=== PATIENT | male | born 1985 | race African-American/Black ===

== ENCOUNTER 2019-10-09 18:19 | Inpatient (IN) | payer OTHER ==
[~2019-10-09] VITALS: Ht 185.4 cm; Wt 76.7 kg
[2019-10-09 18:30] VITALS: BP 116/68
[2019-10-09] MEDS ORDERED: Omnipaque-300 100ml vial INJ ONE (18:45)
[2019-10-09] MEDS ORDERED: Morphine Sulfate 4mg/ml Inj (IV USE ONLY) IVP ONE (18:45)
--- NOTE | 2019-10-09 18:45 | Emergency Room Report ---
History of Present Illness General Chief Complaint: Neck Pain Source: Patient Present Illness HPI Patient presents from nursing facility with reports of discomfort to the right side of the tracheostomy area radiates up towards the right side of the jaw and ear Ongoing for the past several days denies any chest pain denies any vomiting denies any fevers or chills Denies any focal weakness patient has had longstanding tracheostomy in place Allergies: Coded Allergies: IBUPROFEN (Verified Allergy, Unknown, 10/09/19) COVID-19 Screening Contact w/high risk pt: No Recent Travel to affected area: No Experienced COVID-19 symptoms?: No COVID-19 Testing performed INTERNAL COMMUNICATIONS INTERN: Yes COVID-19 Screening: Negative COVID-19 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 Patient History Past Medical History: see triage record Reviewed Nursing Documentation: PMH: Agreed; PSxH: Agreed Nursing Documentation-PMH Hx Asthma: Yes Hx COPD: Yes - pneumonia, septic PE Review of Systems All Other Systems: negative except mentioned in HPI Physical Exam Vital Signs Date Time Temp Pulse Resp B/P (MAP) Pulse Ox O2 Delivery O2 Flow Rate FiO2 10/09/19 18:21 98.2 112 20 116/68 (84) 96 Room Air Sp02 EP Interpretation: reviewed, normal General Appearance: well appearing, no apparent distress Head: normocephalic, atraumatic Eyes: bilateral eye PERRL, bilateral eye EOMI ENT: hearing grossly normal, normal pharynx, TMs + canals normal, uvula midline , other - Tracheostomy in place there is some mild erythema noted at the site there is also a small pustule to the right side approximately 9:00 region at the tracheostomy region Neck: full range of motion, supple, no meningismus, no bony tend Respiratory: lungs clear, normal breath sounds, no rhonchi, no respiratory distress, no retraction, no accessory muscle use Cardiovascular #1: normal peripheral pulses, regular rate, rhythm, no edema, no gallop, no JVD, no murmur Gastrointestinal: normal bowel sounds, non tender, soft, no mass, no organomegaly, non-distended, no guarding, no hernia, no pulsatile mass, no rebound Musculoskeletal: other - Patient chronically debilitated does not follow commands and lower extremity however moves upper extremity without focal deficit Neurologic: motor strength/tone normal, oriented x3, sensory intact, responsive Psychiatric: mood/affect normal Skin: other - As above Lymphatic: normal inspection, no adenopathy Medical Decision Making Diagnostic Impression: Primary Impression: Cellulitis ER Course Given the history and presentation multiple differentials and consideration including but not limited to cellulitis Deeper infectious process such as abscess Patient had extensive blood work and imaging initiated CT imaging does not show any obvious abscess Patient has broad-spectrum antibiotics initiated and admitted for further care Labs Test 10/09/19 19:00 White Blood Count 10.2 K/UL (4.8-10.8) Red Blood Count 4.73 M/UL (4.70-6.10) Hemoglobin 11.3 G/DL (14.2-18.0) Hematocrit 37.5 % (42.0-52.0) Mean Corpuscular Volume 79 FL (80-99) Mean Corpuscular Hemoglobin 23.8 PG (27.0-31.0) Mean Corpuscular Hemoglobin Concent 30.0 G/DL (32.0-36.0) Red Cell Distribution Width 20.3 % (11.6-14.8) Platelet Count 320 K/UL (150-450) Mean Platelet Volume 6.6 FL (6.5-10.1) Neutrophils (%) (Auto) 61.8 % (45.0-75.0) Lymphocytes (%) (Auto) 30.6 % (20.0-45.0) Monocytes (%) (Auto) 3.4 % (1.0-10.0) Eosinophils (%) (Auto) 3.4 % (0.0-3.0) Basophils (%) (Auto) 0.8 % (0.0-2.0) Sodium Level 137 MMOL/L (136-145) Potassium Level 3.9 MMOL/L (3.5-5.1) Chloride Level 101 MMOL/L (98-107) Carbon Dioxide Level 29 MMOL/L (21-32) Anion Gap 7 mmol/L (5-15) Blood Urea Nitrogen 10 mg/dL (7-18) Creatinine 0.8 MG/DL (0.55-1.30) Estimat Glomerular Filtration Rate > 60 mL/min (>60) Glucose Level 91 MG/DL (74-106) Calcium Level 9.6 MG/DL (8.5-10.1) Total Bilirubin 0.1 MG/DL (0.2-1.0) Aspartate Amino Transf (AST/SGOT) 16 U/L (15-37) Alanine Aminotransferase (ALT/SGPT) 24 U/L (12-78) Alkaline Phosphatase 93 U/L (46-116) Total Protein 8.0 G/DL (6.4-8.2) Albumin 2.8 G/DL (3.4-5.0) Globulin 5.2 g/dL Albumin/Globulin Ratio 0.5 (1.0-2.7) Rhythm Strip Diag. Results EP Interpretation: yes Rate: 77 Rhythm: NSR, no PVC's, no ectopy CT/MRI/US Diagnostic Results CT/MRI/US Diagnostic Results : Impression CT neckIMPRESSION: No acute findings in the neck. Centrilobular nodules in the right lung base consistent with aspiration. There is also aspirate material in the lower trachea and right main bronchus. Last Vital Signs Date Time Temp Pulse Resp B/P (MAP) Pulse Ox O2 Delivery O2 Flow Rate FiO2 10/09/19 18:21 98.2 112 20 116/68 (84) 96 Room Air Status: improved Disposition: ADMITTED INPATIENT Condition: Serious Jessi Foy DO Oct 09, 2019 18:45
[2019-10-09 19:26] LABS: BASOPHILS % (AUTO) 0.8 % (0.0-2.0); EOSINOPHILS % (AUTO) 3.4 % (0.0-3.0); HEMATOCRIT 37.5 % (42.0-52.0); HEMOGLOBIN 11.3 G/DL (14.2-18.0); LYMPHOCYTES % (AUTO) 30.6 % (20.0-45.0); MEAN CORPUSCULAR VOLUME 79 FL (80-99); MONOCYTES % (AUTO) 3.4 % (1.0-10.0); NEUTROPHILS % (AUTO) 61.8 % (45.0-75.0); PLATELET COUNT 320 K/UL (150-450); RED BLOOD COUNT 4.73 M/UL (4.70-6.10); RED CELL DISTRIBUTION WIDTH 20.3 % (11.6-14.8); WHITE BLOOD COUNT 10.2 K/UL (4.8-10.8)
[2019-10-09 19:32] LABS: ANION GAP 7 mmol/L (5-15); BLOOD UREA NITROGEN 10 mg/dL (7-18); CALCIUM 9.6 MG/DL (8.5-10.1); CARBON DIOXIDE 29 MMOL/L (21-32); CHLORIDE 101 MMOL/L (98-107); CREATININE 0.8 MG/DL (0.55-1.30); POTASSIUM 3.9 MMOL/L (3.5-5.1); SODIUM 137 MMOL/L (136-145)
[2019-10-09 19:37] LABS: ALANINE AMINOTRANSFERASE 24 U/L (12-78); ALBUMIN 2.8 G/DL (3.4-5.0); ALBUMIN/GLOBULIN RATIO 0.5 (1.0-2.7); ALKALINE PHOSPHATASE 93 U/L (46-116); ASPARTATE AMINO TRANSFERASE 16 U/L (15-37)
[2019-10-09] MEDS ORDERED: ASCORBIC ACID500 MG GT (19:39)
[2019-10-09] MEDS ORDERED: ABACAVIR300 MG GT (19:39)
[2019-10-09] MEDS ORDERED: ACETAMINOP160 MG/5 M GT (19:39)
[2019-10-09] MEDS ORDERED: ACETAMINOPHEN325 M1 GT (19:39)
[2019-10-09] MEDS ORDERED: ARGINAID POWDE1 EACH GT (19:39)
[2019-10-09] MEDS ORDERED: TRAMADOL HCL100 M2 GT (19:40)
[2019-10-09] MEDS ORDERED: PERIDEX15 ML ORAL (19:40)
[2019-10-09] MEDS ORDERED: FAMOTIDINE20 MG/2 ML GT (19:40)
[2019-10-09] MEDS ORDERED: santyl TOPIC (19:40)
[2019-10-09] MEDS ORDERED: LOVENOX40 MG/0.4 SUBQ (19:40)
[2019-10-09] MEDS ORDERED: LAMIVUDINE GT (19:40)
[2019-10-09] MEDS ORDERED: HYDROGEL3000 GM MC (19:40)
[2019-10-09] MEDS ORDERED: MULTI-VITAMIN1 EACH GT (19:40)
[2019-10-09] MEDS ORDERED: CYCLOBENZAPRINE5 MG GT (19:40)
[2019-10-09] MEDS ORDERED: METOCLOPRA10 MG/2 ML GT (19:40)
[2019-10-09] MEDS ORDERED: BETADINE1 EAC1 TP (19:40)
[2019-10-09] MEDS ORDERED: POLYETHYLENE GL17 GM GT (19:40)
[2019-10-09] MEDS ORDERED: TIVICAY50 MG GT (19:40)
[2019-10-09] MEDS ORDERED: ZINC SULFATE220 M2 GT (19:40)
[2019-10-09] MEDS ORDERED: OXYCODONE H5 MG/5 ML GT (19:40)
[2019-10-09] MEDS ORDERED: BISACODYL5 MG GT (19:40)
[2019-10-09 19:49] LABS: BILIRUBIN,TOTAL 0.1 MG/DL (0.2-1.0)
--- NOTE | 2019-10-09 20:38 | Diagnostic Imaging Report ---
EXAM: CT Neck With Intravenous Contrast CLINICAL HISTORY: PAIN TECHNIQUE: Axial computed tomography images of the neck with intravenous contrast. CTDI is 192 mGy and DLP is 344 mGy-cm. One or more of the following dose reduction techniques were used: automated exposure control, adjustment of the mA and/or kV according to patient size, use of iterative reconstruction technique. COMPARISON: No relevant prior studies available. FINDINGS: Oropharynx: No significant tonsillar enlargement. No peritonsillar abscess. Hypopharynx: Unremarkable. Larynx: Normal epiglottis. Trachea: Unremarkable. Retropharyngeal space: Unremarkable. Submandibular/parotid glands: Glands are normal in size. Thyroid: No nodules. Bones/joints: No acute fracture. Soft tissues: Tracheostomy tube is in place. Vasculature: Unremarkable. Lymph nodes: No lymphadenopathy. Mastoid air cells: Unremarkable. No mastoid effusion. Lung apices: Centrilobular nodules in the right lung base. There is also aspirate material in the lower trachea and right main bronchus. IMPRESSION: No acute findings in the neck. Centrilobular nodules in the right lung base consistent with aspiration. There is also aspirate material in the lower trachea and right main bronchus.
[2019-10-09 21:45] VITALS: BP 113/71
[2019-10-10] VITALS: BP 117/79
[2019-10-10] MEDS: oxyCODONE 15mg IR tab ORAL PRN ×5 (01:02→22:28)
[2019-10-10 04:00] VITALS: BP 120/62
[2019-10-10] MEDS ORDERED: Miralax 17gm pkt GT PRN (06:30)
[2019-10-10 06:48] LABS: BASOPHILS % (AUTO) 0.8 % (0.0-2.0); EOSINOPHILS % (AUTO) 2.3 % (0.0-3.0); HEMATOCRIT 32.8 % (42.0-52.0); MEAN CORPUSCULAR VOLUME 79 FL (80-99); MONOCYTES % (AUTO) 6.3 % (1.0-10.0); NEUTROPHILS % (AUTO) 68.6 % (45.0-75.0); PLATELET COUNT 347 K/UL (150-450); RED BLOOD COUNT 4.14 M/UL (4.70-6.10); RED CELL DISTRIBUTION WIDTH 20.3 % (11.6-14.8); WHITE BLOOD COUNT 11.3 K/UL (4.8-10.8)
[2019-10-10 07:15] LABS: ALANINE AMINOTRANSFERASE 17 U/L (12-78); ALBUMIN 2.5 G/DL (3.4-5.0); ALBUMIN/GLOBULIN RATIO 0.5 (1.0-2.7); ALKALINE PHOSPHATASE 76 U/L (46-116); ANION GAP 8 mmol/L (5-15); ASPARTATE AMINO TRANSFERASE 15 U/L (15-37); BILIRUBIN,TOTAL 0.1 MG/DL (0.2-1.0); BLOOD UREA NITROGEN 10 mg/dL (7-18); CALCIUM 7.9 MG/DL (8.5-10.1); CARBON DIOXIDE 27 MMOL/L (21-32); CHLORIDE 101 MMOL/L (98-107); CREATININE 0.8 MG/DL (0.55-1.30); POTASSIUM 4.1 MMOL/L (3.5-5.1); SODIUM 136 MMOL/L (136-145)
[2019-10-10 08:00] VITALS: BP 102/63
[2019-10-10] MEDS: Heparin 5000 units/ml inj SUBQ SCH ×2 (09:00→21:00)
[2019-10-10] MEDS ORDERED: Bisacodyl EC 5mg tab ORAL PRN (09:00)
[2019-10-10] MEDS: Ascorbic Acid 500mg tab GT SCH (09:03)
[2019-10-10] MEDS: Zinc Sulfate 220mg GT SCH (09:04)
[2019-10-10] MEDS: Cyclobenzaprine 10mg Tab ORAL SCH ×3 (10:29→18:26)
[2019-10-10 11:36] VITALS: BP 110/65
--- NOTE | 2019-10-10 12:02 | Consultation ---
EdinCrystal EYELETTER 10/10/19 1202: History of Present Illness General Date patient seen: Oct 10, 2019 Time patient seen: 11:00 Chief Complaint: trach Referring physician: dr Flores Reason for Consultation: trach Present Illness HPI 33 years old male, resident of assisted facility, with past medical history of COPD/asthma, septic emboli, respiratory failure, status post tracheostomy, dysphagia, G-tube, HIV, was sent to ER for evaluation due to the right sided neck discomfort. Patient reported right-sided neck discomfort at the tracheostomy area , radiating over his right side of the jaw and ear. He denied fever , chills. He denied chest pain or shortness of breath. Tracheostomy currently plugged , and pulse oximetry stable on room air . Upon evaluation patient was afebrile and tachycardic with heart rate 112. Laboratory work-up revealed WBC 10.2 ,hemoglobin 11.3, hematocrit 37.5, platelet count 320. Stable electrolytes and renal parameters. Glucose 91. Stable LFT. Albumin 2.8. EKG revealed no acute ischemic changes. CT of the neck revealed no acute findings in the neck. Centrilobular nodule in the right lung base consistent with aspiration. There is also aspiration material in the lower trachea and right main bronchi. In emergency department patient received analgesic antiemetic and admitted for further management. Pulmonary consult was requested to assist in management of this patient. When questioned, patient reports that he wants trach to be removed. Trach is currently plugged. Patient has diffused rhonchi on auscultation. Patient reported that bedside swallow evaluation was done at the facility , however he still aspirated. When questioned regarding septic emboli , patient not sure if he is getting any anticoagulation and when he was diagnosed. When questioned regarding last CD4 count patient is not aware of it as well. This am patient developed fever 100.8 and mild leukocytosis 11.3. Allergies: Coded Allergies: IBUPROFEN (Verified Allergy, Unknown, 10/09/19) Medication History Scheduled Abacavir Sulfate* (Abacavir*), 300 MG ORAL DAILY, (Reported) Ascorbic Acid* (Ascorbic Acid*), 500 MG GT DAILY, (Reported) Bisacodyl* (Dulcolax*), 5 MG GT DAILY, (Reported) Chlorhexidine Gluconate (Peridex), 15 ML ORAL BID, (Reported) Cyclobenzaprine Hcl (Cyclobenzaprine Hcl), 10 MG GT THREE TIMES A DAY, (Reported ) Dolutegravir Sodium (Tivicay), 50 MG GT DAILY, (Reported) FAMOTIDINE 20mg/2ml vial* (Pepcid 20mg/2ml vial*), 20 MG GT BID, (Reported) Metoclopramide HCl (Metoclopramide HCl), 10 MG GT Q8HR, (Reported) Oxycodone Hcl (Oxycodone Hcl), 15 MG GT Q4HR, (Reported) Tramadol Hcl (Tramadol Hcl), 50 MG GT Q4HR, (Reported) Zinc Sulfate (Zinc Sulfate), 220 MG GT DAILY, (Reported) [iamivudine], 300 MG GT DAILY, (Reported) [santyl], 250 UNIT TOPIC DAILY, (Reported) Scheduled PRN Acetaminophen 160MG/5ML* (Acetaminophen*), 20.3 ML GT Q6HR PRN for Fever/ Headache/Mild Pain, (Reported) Acetaminophen* (Acetaminophen 325MG Tablet*), 325 MG GT DAILY PRN for prior to wound care, (Reported) Polyethylene Glycol 3350* (Polyethylene Glycol 3350*), 15 ML GT DAILY PRN for Constipation, (Reported) Miscellaneous Medications Arginine/Ascorbate Sod/Brandon AC (Arginaid Powder), 1 EACH GT, (Reported) Enoxaparin (Lovenox), 40 MG SUBQ, (Reported) Gel Base No.41 (Hydrogel), 3,000 GM MC, (Reported) Multivitamin (Multi-Vitamin Daily), 1 EACH GT, (Reported) Povidone-Iodine (Betadine), 1 EACH TP, (Reported) Discontinued Medications Abacavir Sulfate* (Abacavir*), 300 MG GT TWICE A DAY, (Reported) Discontinued Reason: Medication dose changed Patient History Healthcare decision maker Resuscitation status Full code Advanced Directive on File Review of Systems Constitutional: Reports: no symptoms Eye: Reports: no symptoms ENT: Reports: no symptoms Respiratory: Reports: see HPI, other - trach Cardiovascular: Reports: no symptoms Gastrointestinal: Reports: other - G tube Genitourinary: Reports: no symptoms Musculoskeletal: Reports: back pain Skin: Reports: other - denisse foot ulcers Psychiatric: Reports: anxiety Neurological: Reports: no symptoms Endocrine: Reports: no symptoms Hematologic/Lymphatic: Reports: other - HIV Physical Exam General Appearance: WD/WN, no apparent distress - AA male Lines, tubes and drains: peripheral HEENT: normocephalic, atraumatic, anicteric, mucous membranes moist, status post trach - plugged , minimal erythema, no edema around the site, hypergranulation tissue noted Respiratory/Chest: no accessory muscle use, respiratory distress, rhonchi - bilaterally Cardiovascular/Chest: normal peripheral pulses, normal rate Abdomen: normal bowel sounds, non tender, soft Extremities: no calf tenderness, normal capillary refill, non-pitting Skin Exam: warm/dry, other - denisse foot ulcers Neurologic: abnormal gait, alert, oriented x 3, responsive, other - multiple tattoos Musculoskeletal: normal muscle bulk Last 24 Hour Vital Signs Date Time Temp Pulse Resp B/P (MAP) Pulse Ox O2 Delivery O2 Flow Rate FiO2 10/10/19 11:36 98.2 110 20 110/65 (80) 92 10/10/19 09:00 Room Air 10/10/19 08:00 97.7 114 24 102/63 (76) 92 10/10/19 05:31 100.8 10/10/19 04:00 100.8 132 24 120/62 (81) 90 10/10/19 03:00 Room Air 10/10/19 00:00 98.2 129 22 117/79 (92) 96 10/09/19 23:35 98.2 82 22 115/76 98 Room Air 10/09/19 21:45 98.2 85 20 113/71 98 Room Air 10/09/19 19:17 98.2 10/09/19 18:30 98.2 20 116/68 96 Room Air 10/09/19 18:21 98.2 112 20 116/68 (84) 96 Room Air Intake and Output 10/09/19 10/10/19 19:00 07:00 Intake Total 500 ml Output Total 700 ml Balance -200 ml Other 500 ml Output Urine Total 700 ml # Bowel Movements 1 Laboratory Tests Test 10/09/19 19:00 10/10/19 06:00 White Blood Count 10.2 K/UL (4.8-10.8) 11.3 K/UL (4.8-10.8) H Red Blood Count 4.73 M/UL (4.70-6.10) 4.14 M/UL (4.70-6.10) L Hemoglobin 11.3 G/DL (14.2-18.0) L 10.0 G/DL (14.2-18.0) L Hematocrit 37.5 % (42.0-52.0) L 32.8 % (42.0-52.0) L Mean Corpuscular Volume 79 FL (80-99) L 79 FL (80-99) L Mean Corpuscular Hemoglobin 23.8 PG (27.0-31.0) L 24.2 PG (27.0-31.0) L Mean Corpuscular Hemoglobin Concent 30.0 G/DL (32.0-36.0) L 30.6 G/DL (32.0-36.0) L Red Cell Distribution Width 20.3 % (11.6-14.8) H 20.3 % (11.6-14.8) H Platelet Count 320 K/UL (150-450) 347 K/UL (150-450) Mean Platelet Volume 6.6 FL (6.5-10.1) 6.6 FL (6.5-10.1) Neutrophils (%) (Auto) 61.8 % (45.0-75.0) 68.6 % (45.0-75.0) Lymphocytes (%) (Auto) 30.6 % (20.0-45.0) 22.0 % (20.0-45.0) Monocytes (%) (Auto) 3.4 % (1.0-10.0) 6.3 % (1.0-10.0) Eosinophils (%) (Auto) 3.4 % (0.0-3.0) H 2.3 % (0.0-3.0) Basophils (%) (Auto) 0.8 % (0.0-2.0) 0.8 % (0.0-2.0) Sodium Level 137 MMOL/L (136-145) 136 MMOL/L (136-145) Potassium Level 3.9 MMOL/L (3.5-5.1) 4.1 MMOL/L (3.5-5.1) Chloride Level 101 MMOL/L (98-107) 101 MMOL/L (98-107) Carbon Dioxide Level 29 MMOL/L (21-32) 27 MMOL/L (21-32) Anion Gap 7 mmol/L (5-15) 8 mmol/L (5-15) Blood Urea Nitrogen 10 mg/dL (7-18) 10 mg/dL (7-18) Creatinine 0.8 MG/DL (0.55-1.30) 0.8 MG/DL (0.55-1.30) Estimat Glomerular Filtration Rate > 60 mL/min (>60) > 60 mL/min (>60) Glucose Level 91 MG/DL (74-106) 110 MG/DL (74-106) H Calcium Level 9.6 MG/DL (8.5-10.1) 7.9 MG/DL (8.5-10.1) L Total Bilirubin 0.1 MG/DL (0.2-1.0) L 0.1 MG/DL (0.2-1.0) L Aspartate Amino Transf (AST/SGOT) 16 U/L (15-37) 15 U/L (15-37) Alanine Aminotransferase (ALT/SGPT) 24 U/L (12-78) 17 U/L (12-78) Alkaline Phosphatase 93 U/L (46-116) 76 U/L (46-116) Total Protein 8.0 G/DL (6.4-8.2) 7.1 G/DL (6.4-8.2) Albumin 2.8 G/DL (3.4-5.0) L 2.5 G/DL (3.4-5.0) L Globulin 5.2 g/dL 4.6 g/dL Albumin/Globulin Ratio 0.5 (1.0-2.7) L 0.5 (1.0-2.7) L Height (Feet): 6 Height (Inches): 1.00 Weight (Pounds): 165 Medications Current Medications Medications (Trade) Dose Ordered Sig/Fritz Route PRN Reason Start Time Stop Time Status Last Admin Dose Admin Abacavir Sulfate (Ziagen) 300 mg DAILY GT 10/10/19 09:00 11/09/19 08:59 UNV Acetaminophen (Tylenol) 650 mg Q4H PRN ORAL Mild Pain (Pain Scale 1-3) 10/10/19 04:45 11/09/19 04:44 10/10/19 05:01 Ascorbic Acid (Vitamin C) 500 mg DAILY GT 10/10/19 09:00 11/09/19 08:59 10/10/19 09:03 Bisacodyl (Dulcolax) 10 mg DAILY PRN ORAL Constipation 10/10/19 09:00 01/08/20 08:59 Cyclobenzaprine HCl (Flexeril) 10 mg THREE TIMES A DAY ORAL 10/10/19 09:00 11/09/19 08:59 10/10/19 10:29 Dolutegravir Sodium (Tivicay) 50 mg DAILY GT 10/10/19 09:00 01/08/20 08:59 UNV Famotidine (Pepcid) 20 mg BID ORAL 10/10/19 09:00 01/08/20 08:59 10/10/19 09:03 Heparin Sodium (Porcine) (Heparin 5000 units/ml) 5,000 units EVERY 12 HOURS SUBQ 10/10/19 09:00 11/24/19 08:59 Multivitamins (Multivitamins) 1 tab DAILY GT 10/10/19 09:00 11/09/19 08:59 10/10/19 09:04 Non-Formulary Medication (Non-Formulary Med) 1 ea DAILY ORAL 10/10/19 09:00 11/09/19 08:59 UNV Ondansetron HCl (Zofran) 4 mg EVERY 6 HOURS PRN IVP Nausea & Vomiting 10/10/19 00:45 11/09/19 00:44 Oxycodone HCl (Roxicodone) 15 mg Q4H PRN ORAL Severe Pain (Pain Scale 7-10) 10/10/19 00:45 10/17/19 00:44 10/10/19 09:03 Polyethylene Glycol (Miralax) 1 gm DAILY PRN GT Constipation 10/10/19 06:30 11/09/19 06:29 Zinc Sulfate (Zinc Sulfate) 220 mg DAILY GT 10/10/19 09:00 01/08/20 08:59 10/10/19 09:04 Assessment/Plan Assessment/Plan: ASSESSMENT Neck/trach discomfort Trach cellulitis Aspiration ( with fever and leukocytosis) Chronic tracheostomy Dysphagia, G tube HIV status COPD /asthma Hx of septic emboli PLAN OF CARE MS floor trach care , pulm toilet , HHN titrate O2 to keep sat above 90%, stable on RA no significant cellulitis noted start empiric abx for aspiration, fup with CXR and clinically pt wants to remove trach , defer to primary trach plugged at this time, pulse ox stable on RA, however at this time significant rhonchi bilaterally BSSE, pt stated it was done at the facility, however, he still aspirated, will repeat swallow eval after swallow eval diet as per ST recs aspiration precautions DVT/GI prophylaxis SNF meds resumed incomplete data base ( pt does not provide info as to how he got trach, CD4 count etc) Continue HAART as from SNF -> if available at our pharmacy no info re septic emboli;i, ? on a/coagulation will try to obtain more info pain management bowel regimen supportive care case discussed and evaluated by supervising physician Benton Willson MD 10/11/19 1115: History of Present Illness General Chief Complaint: trach Present Illness Allergies: Coded Allergies: IBUPROFEN (Verified Allergy, Unknown, 10/09/19) Medication History Scheduled Abacavir Sulfate* (Abacavir*), 300 MG ORAL DAILY, (Reported) Ascorbic Acid* (Ascorbic Acid*), 500 MG GT DAILY, (Reported) Bisacodyl* (Dulcolax*), 5 MG GT DAILY, (Reported) Chlorhexidine Gluconate (Peridex), 15 ML ORAL BID, (Reported) Cyclobenzaprine Hcl (Cyclobenzaprine Hcl), 10 MG GT THREE TIMES A DAY, (Reported ) Dolutegravir Sodium (Tivicay), 50 MG GT DAILY, (Reported) FAMOTIDINE 20mg/2ml vial* (Pepcid 20mg/2ml vial*), 20 MG GT BID, (Reported) Metoclopramide HCl (Metoclopramide HCl), 10 MG GT Q8HR, (Reported) Oxycodone Hcl (Oxycodone Hcl), 15 MG GT Q4HR, (Reported) Tramadol Hcl (Tramadol Hcl), 50 MG GT Q4HR, (Reported) Zinc Sulfate (Zinc Sulfate), 220 MG GT DAILY, (Reported) [iamivudine], 300 MG GT DAILY, (Reported) [santyl], 250 UNIT TOPIC DAILY, (Reported) Scheduled PRN Acetaminophen 160MG/5ML* (Acetaminophen*), 20.3 ML GT Q6HR PRN for Fever/ Headache/Mild Pain, (Reported) Acetaminophen* (Acetaminophen 325MG Tablet*), 325 MG GT DAILY PRN for prior to wound care, (Reported) Polyethylene Glycol 3350* (Polyethylene Glycol 3350*), 15 ML GT DAILY PRN for Constipation, (Reported) Miscellaneous Medications Arginine/Ascorbate Sod/Brandon AC (Arginaid Powder), 1 EACH GT, (Reported) Enoxaparin (Lovenox), 40 MG SUBQ, (Reported) Gel Base No.41 (Hydrogel), 3,000 GM MC, (Reported) Multivitamin (Multi-Vitamin Daily), 1 EACH GT, (Reported) Povidone-Iodine (Betadine), 1 EACH TP, (Reported) Discontinued Medications Abacavir Sulfate* (Abacavir*), 300 MG GT TWICE A DAY, (Reported) Discontinued Reason: Medication dose changed Assessment/Plan Assessment/Plan: Patient seen and examined with EYELETTER. I agree with above A&P as this reflects our joint deliberations. Crystal Jesus NP Oct 10, 2019 12:02 Bneton Willson MD Oct 11, 2019 11:15
[2019-10-10] MEDS ORDERED: Albuterol/Ipratropium 3ml neb HHN PRN (12:10)
[2019-10-10 14:20] LABS: APPEARANCE,URINE SLIGHTLY CLOUDY; BILIRUBIN, URINE NEGATIVE (NEGATIVE); COLOR,URINE PALE YELLOW; GLUCOSE, URINE (UA) NEGATIVE (NEGATIVE); KETONES,URINE NEGATIVE (NEGATIVE); LEUKOCYTE ESTERASE ,URINE 3+ (NEGATIVE); NITRITE,URINE POSITIVE (NEGATIVE); PH,URINE 7 (4.5-8.0); PROTEIN,URINE 1+ (NEGATIVE); UROBILINOGEN,URINE NORMAL MG/DL (0.0-1.0)
[2019-10-10] MEDS: Piperacillin/Tazobactam 3.375 GM in NS 110 ML IVPB SCH ×2 (14:20→23:12)
--- NOTE | 2019-10-10 15:18 | Consultation ---
History of Present Illness General Date patient seen: Oct 10, 2019 Reason for Hospitalization: Neck Pain Present Illness HPI This is a 33year-old male with history of tracheostomy that come planes of right -sided neck and facial pain for a few days now. States that he cannot recall why he had a tracheostomy and was ill during that time. But over the course last week recalls that they placed him on a [place] valve he has been talking since and more comfortable but notes some pain in his right neck. States that they were unable to decannulate him at his facility and he was referred to [facility] for further evaluation surgery was called to evaluate and assist with care patient seen, patient evaluated, chart reviewed Allergies: Coded Allergies: IBUPROFEN (Verified Allergy, Unknown, 10/09/19) COVID-19 Screening Contact w/high risk pt: No Recent Travel to affected area: No Experienced COVID-19 symptoms?: No Medication History Scheduled Abacavir Sulfate* (Abacavir*), 300 MG GT TWICE A DAY, (Reported) Ascorbic Acid* (Ascorbic Acid*), 500 MG GT DAILY, (Reported) Bisacodyl* (Dulcolax*), 5 MG GT DAILY, (Reported) Chlorhexidine Gluconate (Peridex), 15 ML ORAL BID, (Reported) Cyclobenzaprine Hcl (Cyclobenzaprine Hcl), 10 MG GT THREE TIMES A DAY, (Reported ) Dolutegravir Sodium (Tivicay), 50 MG GT DAILY, (Reported) FAMOTIDINE 20mg/2ml vial* (Pepcid 20mg/2ml vial*), 20 MG GT BID, (Reported) Metoclopramide HCl (Metoclopramide HCl), 10 MG GT Q8HR, (Reported) Oxycodone Hcl (Oxycodone Hcl), 15 MG GT Q4HR, (Reported) Tramadol Hcl (Tramadol Hcl), 50 MG GT Q4HR, (Reported) Zinc Sulfate (Zinc Sulfate), 220 MG GT DAILY, (Reported) [iamivudine], 300 MG GT DAILY, (Reported) [santyl], 250 UNIT TOPIC DAILY, (Reported) Scheduled PRN Acetaminophen 160MG/5ML* (Acetaminophen*), 20.3 ML GT Q6HR PRN for Fever/ Headache/Mild Pain, (Reported) Acetaminophen* (Acetaminophen 325MG Tablet*), 325 MG GT DAILY PRN for prior to wound care, (Reported) Polyethylene Glycol 3350* (Polyethylene Glycol 3350*), 15 ML GT DAILY PRN for Constipation, (Reported) Miscellaneous Medications Arginine/Ascorbate Sod/Brandon AC (Arginaid Powder), 1 EACH GT, (Reported) Enoxaparin (Lovenox), 40 MG SUBQ, (Reported) Gel Base No.41 (Hydrogel), 3,000 GM MC, (Reported) Multivitamin (Multi-Vitamin Daily), 1 EACH GT, (Reported) Povidone-Iodine (Betadine), 1 EACH TP, (Reported) Patient History History Provided By: Patient, Medical Record, PMD Healthcare decision maker Resuscitation status Advanced Directive on File Past Medical/Surgical History Past Medical/Surgical History: (1) Cellulitis (2) trach cellulitis Review of Systems Review of Symptoms General ROS: no weight loss or fever Psychological ROS: no depression or mood changes, no memory loss Ophthalmic ROS: no visual changes or eye irritation ENT ROS: no nasal congestion, hearing loss, dizziness Allergy and Immunology ROS: no allergic symptoms or urticaria Hematological and Lymphatic ROS: no swollen glands, unusual bleeding or bruising Endocrine ROS: no polyuria, polydipsia, weight changes, temperature intolerance Respiratory ROS: no cough, shortness of breath, or wheezing Cardiovascular ROS: no chest pain or dyspnea on exertion Gastrointestinal ROS: denies abdominal pain, bright red blood in stool. Musculoskeletal ROS: no myalgias or arthralgias Neurological ROS: no TIA or stroke symptoms Dermatological ROS: no new or changing skin lesions, rashes or pruritis Physical Exam Physical Exam General appearance: alert, cooperative, no distress, appears stated age Head: Normocephalic, without obvious abnormality, atraumatic Eyes: conjunctivae/corneas clear. PERRL, EOM's intact. Fundi benign Throat: Lips, mucosa, and tongue normal. Teeth and gums normal Neck: supple, symmetrical, trachea midline, no adenopathy, thyroid: not enlarged, symmetric, no tenderness/mass/nodules, no carotid bruit and no JVD trach in place no cellulitis Lungs: clear to auscultation bilaterally Heart: regular rate and rhythm, S1, S2 normal, no murmur, click, rub or gallop Abdomen: soft, non-tender. Bowel sounds normal. No masses, no organomegaly Extremities: extremities normal, atraumatic, no cyanosis or edema Pulses: 2+ and symmetric Skin: Skin color, texture, turgor normal. No rashes or lesions Neurologic: Grossly normal Last 24 Hour Vital Signs Date Time Temp Pulse Resp B/P (MAP) Pulse Ox O2 Delivery O2 Flow Rate FiO2 10/10/19 11:36 98.2 110 20 110/65 (80) 92 10/10/19 09:00 Room Air 10/10/19 08:00 97.7 114 24 102/63 (76) 92 10/10/19 05:31 100.8 10/10/19 04:00 100.8 132 24 120/62 (81) 90 10/10/19 03:00 Room Air 10/10/19 00:00 98.2 129 22 117/79 (92) 96 10/09/19 23:35 98.2 82 22 115/76 98 Room Air 10/09/19 21:45 98.2 85 20 113/71 98 Room Air 10/09/19 19:17 98.2 10/09/19 18:30 98.2 20 116/68 96 Room Air 10/09/19 18:21 98.2 112 20 116/68 (84) 96 Room Air Intake and Output 10/09/19 10/10/19 19:00 07:00 Intake Total 500 ml Output Total 700 ml Balance -200 ml Other 500 ml Output Urine Total 700 ml # Bowel Movements 1 Laboratory Tests Test 10/09/19 19:00 10/10/19 06:00 10/10/19 13:30 White Blood Count 10.2 K/UL (4.8-10.8) 11.3 K/UL (4.8-10.8) H Red Blood Count 4.73 M/UL (4.70-6.10) 4.14 M/UL (4.70-6.10) L Hemoglobin 11.3 G/DL (14.2-18.0) L 10.0 G/DL (14.2-18.0) L Hematocrit 37.5 % (42.0-52.0) L 32.8 % (42.0-52.0) L Mean Corpuscular Volume 79 FL (80-99) L 79 FL (80-99) L Mean Corpuscular Hemoglobin 23.8 PG (27.0-31.0) L 24.2 PG (27.0-31.0) L Mean Corpuscular Hemoglobin Concent 30.0 G/DL (32.0-36.0) L 30.6 G/DL (32.0-36.0) L Red Cell Distribution Width 20.3 % (11.6-14.8) H 20.3 % (11.6-14.8) H Platelet Count 320 K/UL (150-450) 347 K/UL (150-450) Mean Platelet Volume 6.6 FL (6.5-10.1) 6.6 FL (6.5-10.1) Neutrophils (%) (Auto) 61.8 % (45.0-75.0) 68.6 % (45.0-75.0) Lymphocytes (%) (Auto) 30.6 % (20.0-45.0) 22.0 % (20.0-45.0) Monocytes (%) (Auto) 3.4 % (1.0-10.0) 6.3 % (1.0-10.0) Eosinophils (%) (Auto) 3.4 % (0.0-3.0) H 2.3 % (0.0-3.0) Basophils (%) (Auto) 0.8 % (0.0-2.0) 0.8 % (0.0-2.0) Sodium Level 137 MMOL/L (136-145) 136 MMOL/L (136-145) Potassium Level 3.9 MMOL/L (3.5-5.1) 4.1 MMOL/L (3.5-5.1) Chloride Level 101 MMOL/L (98-107) 101 MMOL/L (98-107) Carbon Dioxide Level 29 MMOL/L (21-32) 27 MMOL/L (21-32) Anion Gap 7 mmol/L (5-15) 8 mmol/L (5-15) Blood Urea Nitrogen 10 mg/dL (7-18) 10 mg/dL (7-18) Creatinine 0.8 MG/DL (0.55-1.30) 0.8 MG/DL (0.55-1.30) Estimat Glomerular Filtration Rate > 60 mL/min (>60) > 60 mL/min (>60) Glucose Level 91 MG/DL (74-106) 110 MG/DL (74-106) H Calcium Level 9.6 MG/DL (8.5-10.1) 7.9 MG/DL (8.5-10.1) L Total Bilirubin 0.1 MG/DL (0.2-1.0) L 0.1 MG/DL (0.2-1.0) L Aspartate Amino Transf (AST/SGOT) 16 U/L (15-37) 15 U/L (15-37) Alanine Aminotransferase (ALT/SGPT) 24 U/L (12-78) 17 U/L (12-78) Alkaline Phosphatase 93 U/L (46-116) 76 U/L (46-116) Total Protein 8.0 G/DL (6.4-8.2) 7.1 G/DL (6.4-8.2) Albumin 2.8 G/DL (3.4-5.0) L 2.5 G/DL (3.4-5.0) L Globulin 5.2 g/dL 4.6 g/dL Albumin/Globulin Ratio 0.5 (1.0-2.7) L 0.5 (1.0-2.7) L Urine Color Pale yellow Urine Appearance Slightly cloudy Urine pH 7 (4.5-8.0) Urine Specific [place] 1.010 (1.005-1.035) Urine Protein 1+ (NEGATIVE) H Urine Glucose (UA) Negative (NEGATIVE) Urine Ketones Negative (NEGATIVE) Urine Blood 4+ (NEGATIVE) H Urine Nitrite Positive (NEGATIVE) H Urine Bilirubin Negative (NEGATIVE) Urine Urobilinogen Normal MG/DL (0.0-1.0) Urine Leukocyte Esterase 3+ (NEGATIVE) H Urine RBC 10-15 /HPF (0 - 0) H Urine WBC 20-30 /HPF (0 - 0) H Urine Squamous Epithelial Cells Occasional /LPF Urine Bacteria Moderate /HPF (NONE) H Height (Feet): 6 Height (Inches): 1.00 Weight (Pounds): 165 Medications Current Medications Medications (Trade) Dose Ordered Sig/Fritz Route PRN Reason Start Time Stop Time Status Last Admin Dose Admin Abacavir Sulfate (Ziagen) 300 mg DAILY GT 10/10/19 09:00 11/09/19 08:59 UNV Acetaminophen (Tylenol) 650 mg Q4H PRN ORAL Mild Pain (Pain Scale 1-3) 10/10/19 04:45 11/09/19 04:44 10/10/19 05:01 Albuterol/ Ipratropium (Albuterol/ Ipratropium) 3 ml Q4H PRN HHN Shortness of Breath 10/10/19 12:10 10/15/19 12:09 Ascorbic Acid (Vitamin C) 500 mg DAILY GT 10/10/19 09:00 11/09/19 08:59 10/10/19 09:03 Bisacodyl (Dulcolax) 10 mg DAILY PRN ORAL Constipation 10/10/19 09:00 01/08/20 08:59 Cyclobenzaprine HCl (Flexeril) 10 mg THREE TIMES A DAY ORAL 10/10/19 09:00 11/09/19 08:59 10/10/19 14:21 Dolutegravir Sodium (Tivicay) 50 mg DAILY GT 10/10/19 15:00 01/08/20 14:59 Famotidine (Pepcid) 20 mg BID ORAL 10/10/19 09:00 01/08/20 08:59 10/10/19 09:03 Heparin Sodium (Porcine) (Heparin 5000 units/ml) 5,000 units EVERY 12 HOURS SUBQ 10/10/19 09:00 11/24/19 08:59 Lamivudine (Epivir) 300 mg DAILY GT 10/10/19 15:00 11/09/19 14:59 Multivitamins (Multivitamins) 1 tab DAILY GT 10/10/19 09:00 11/09/19 08:59 10/10/19 09:04 Ondansetron HCl (Zofran) 4 mg EVERY 6 HOURS PRN IVP Nausea & Vomiting 10/10/19 00:45 11/09/19 00:44 Oxycodone HCl (Roxicodone) 15 mg Q4H PRN ORAL Severe Pain (Pain Scale 7-10) 10/10/19 00:45 10/17/19 00:44 10/10/19 09:03 Piperacillin Sod/ Tazobactam Sod 3.375 gm/Sodium Chloride 110 ml @ 27.5 mls/hr EVERY 8 HOURS IVPB 10/10/19 14:00 10/15/19 13:59 10/10/19 14:20 Polyethylene Glycol (Miralax) 1 gm DAILY PRN GT Constipation 10/10/19 06:30 11/09/19 06:29 Zinc Sulfate (Zinc Sulfate) 220 mg DAILY GT 10/10/19 09:00 01/08/20 08:59 10/10/19 09:04 Assessment/Plan Problem List: (1) Cellulitis Assessment & Plan: Patient reported to have cellulitis around his tracheostomy and therefore cannot be decannulated in facility. He was complaining of pain around the site. He was admitted to [facility] further evaluation I was called to see patient patient was seen and evaluated no significant infectious or cellulitis process or on trachea for tracheostomy but there is granulation hyper granulation tissue noted. Discussed case with patient's primary care physician and patient he is ready for decannulation as was planned but unfortunate was unable to given it was felt that tracheostomy was stuck in place. After consent obtained from patient the tracheostomy was is decannulated at bedside without complication there was just some hyper granular tissue that was holding it in place but no abnormality or complication. Dressings applied. Okay for diet as tolerated Respiratory care deep suctioning Incentive spirometry Speech therapy Thank you for let me participate patient's care ICD Codes: L03.90 - Cellulitis, unspecified SNOMED: [id number] (2) trach cellulitis (3) Tracheostomy complication Assessment & Plan: Oropharynx: No significant tonsillar enlargement. No peritonsillar abscess. Hypopharynx: Unremarkable. Larynx: Normal epiglottis. Trachea: Unremarkable. Retropharyngeal space: Unremarkable. Submandibular/parotid glands: Glands are normal in size. Thyroid: No nodules. Bones/joints: No acute fracture. Soft tissues: Tracheostomy tube is in place. Vasculature: Unremarkable. Lymph nodes: No lymphadenopathy. Mastoid air cells: Unremarkable. No mastoid effusion. Lung apices: Centrilobular nodules in the right lung base. There is also aspirate material in the lower trachea and right main bronchus. IMPRESSION: No acute findings in the neck. Centrilobular nodules in the right lung base consistent with aspiration. There is also aspirate material in the lower trachea and right main bronchus. hypergranulation tissue. no true complication. just healing process trach removed without issues dressings applied ICD Codes: J95.00 - Unspecified tracheostomy complication SNOMED: [id number] Raj Hernandez Oct 10, 2019 15:18
[2019-10-10] MEDS ORDERED: ABACAVIR300 MG ORAL (15:24)
[2019-10-10 16:00] VITALS: BP 106/60
[2019-10-10] MEDS: Dolutegravir Sodium 50mg tab GT SCH (16:07)
[2019-10-10 20:00] VITALS: BP 116/74
[2019-10-11] VITALS: BP 110/68
[2019-10-11] MEDS: Piperacillin/Tazobactam 3.375 GM in NS 110 ML IVPB SCH ×3 (06:00→21:03)
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
[2019-10-11 08:00] VITALS: BP 110/69
[2019-10-11] MEDS: Cyclobenzaprine 10mg Tab ORAL SCH ×3 (09:09→17:01)
[2019-10-11] MEDS: Zinc Sulfate 220mg GT SCH (09:09)
[2019-10-11] MEDS: Ascorbic Acid 500mg tab GT SCH (09:09)
[2019-10-11] MEDS: oxyCODONE 15mg IR tab ORAL PRN ×3 (09:09→21:04)
[2019-10-11] MEDS: Dolutegravir Sodium 50mg tab GT SCH (09:10)
[2019-10-11] MEDS: Heparin 5000 units/ml inj SUBQ SCH ×2 (09:10→21:06)
--- NOTE | 2019-10-11 10:34 | Diagnostic Imaging Report ---
Procedure: XRAY Chest 1v Reason for study: Reason For Exam: SOB Comparison films: None. FINDINGS: A single one view chest is obtained. Vascularity is normal. Mild hazy densities in the right lung base adjacent to the right heart margin. Possible early infiltrate. Cardiac and mediastinal silhouette are within normal limits. CP angles are sharp. The bony thorax appear unremarkable. IMPRESSION: Possible early right basilar infiltrate.
[2019-10-11] MEDS ORDERED: Varibar Pudding 230ml MC PRN (11:00)
[2019-10-11] MEDS ORDERED: Varibar Nectar 240ml MC PRN (11:00)
[2019-10-11] MEDS ORDERED: Varibar Honey 250ml MC PRN (11:00)
[2019-10-11 12:00] VITALS: BP 116/72
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
--- NOTE | 2019-10-11 13:33 | Surgery Progress Note ---
Surgery Progress Note Subjective Symptoms: improved, pain decreased Objective Last 24 Hour Vital Signs Date Time Temp Pulse Resp B/P (MAP) Pulse Ox O2 Delivery O2 Flow Rate FiO2 10/11/19 12:00 98.2 110 20 116/72 (87) 95 10/11/19 09:00 Room Air 10/11/19 08:00 98.8 113 20 110/69 (83) 95 10/11/19 00:00 98.3 101 18 110/68 (82) 96 10/10/19 21:00 Room Air 10/10/19 20:00 99.1 122 18 116/74 (88) 97 10/10/19 16:00 97.8 112 20 106/60 (75) 95 I&O Intake and Output 10/10/19 10/11/19 18:59 06:59 Intake Total 600 ml 430 ml Output Total 1400 ml 950 ml Balance -800 ml -520 ml Intake Oral 600 ml Free Water 100 ml IV Total 110 ml Tube Feeding 220 ml Output Urine Total 1400 ml 950 ml # Voids 1 Dressing: dry Wound: clean Cardiovascular: RSR Respiratory: clear Abdomen: soft, non-tender, present bowel sounds Extremities: no edema, no tenderness, no cyanosis Plan Problems: (1) Cellulitis Assessment & Plan: Patient reported to have cellulitis around his tracheostomy and therefore cannot be decannulated in facility. He was complaining of pain around the site. He was admitted to [facility] further evaluation I was called to see patient patient was seen and evaluated no significant infectious or cellulitis process or on trachea for tracheostomy but there is granulation hyper granulation tissue noted. Discussed case with patient's primary care physician and patient he is ready for decannulation as was planned but unfortunate was unable to given it was felt that tracheostomy was stuck in place. After consent obtained from patient the tracheostomy was is decannulated at bedside without complication there was just some hyper granular tissue that was holding it in place but no abnormality or complication. Dressings applied. Okay for diet as tolerated Respiratory care deep suctioning Incentive spirometry Speech therapy Thank you for let me participate patient's care d/c planning (2) trach cellulitis (3) Tracheostomy complication Assessment & Plan: Oropharynx: No significant tonsillar enlargement. No peritonsillar abscess. Hypopharynx: Unremarkable. Larynx: Normal epiglottis. Trachea: Unremarkable. Retropharyngeal space: Unremarkable. Submandibular/parotid glands: Glands are normal in size. Thyroid: No nodules. Bones/joints: No acute fracture. Soft tissues: Tracheostomy tube is in place. Vasculature: Unremarkable. Lymph nodes: No lymphadenopathy. Mastoid air cells: Unremarkable. No mastoid effusion. Lung apices: Centrilobular nodules in the right lung base. There is also aspirate material in the lower trachea and right main bronchus. IMPRESSION: No acute findings in the neck. Centrilobular nodules in the right lung base consistent with aspiration. There is also aspirate material in the lower trachea and right main bronchus. hypergranulation tissue. no true complication. just healing process trach removed without issues dressings applied Raj Hernandez Oct 11, 2019 13:33
[2019-10-11 16:00] VITALS: BP 108/65
[2019-10-11 20:00] VITALS: BP 108/68
[2019-10-12] VITALS: BP 118/72
[2019-10-12 04:00] VITALS: BP 112/63
[2019-10-12] MEDS: oxyCODONE 15mg IR tab ORAL PRN ×3 (04:24→16:45)
[2019-10-12] MEDS: Piperacillin/Tazobactam 3.375 GM in NS 110 ML IVPB SCH ×3 (05:07→21:07)
--- NOTE | 2019-10-12 07:45 | Progress Note ---
DATE: 10/11/2019 SUBJECTIVE: The patient is afebrile. Hemodynamically stable. He underwent today swallowing evaluation and passed the test. However, speech therapist in regard to the swallowing, finding of food in the trachea and food in the pulmonary parenchyma. This was done 2 days ago. Therefore, the patient will remain on G-tube feeding until tomorrow. Repeat assessment of the patient's swallowing will be done in the a.m. Otherwise, the patient is in stable condition. Kwame Flores M.D. DR: JEFF JOB#: [id number] CC:
[2019-10-12] MEDS: Ascorbic Acid 500mg tab GT SCH (08:45)
[2019-10-12] MEDS: Dolutegravir Sodium 50mg tab GT SCH (08:45)
[2019-10-12] MEDS: Zinc Sulfate 220mg GT SCH (08:45)
[2019-10-12] MEDS: Cyclobenzaprine 10mg Tab ORAL SCH ×3 (08:45→17:57)
[2019-10-12] MEDS: Heparin 5000 units/ml inj SUBQ SCH ×2 (08:49→21:08)
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
[2019-10-12 12:00] VITALS: BP 111/65
[2019-10-12] MEDS ORDERED: Miralax 17gm pkt ORAL PRN (12:03)
--- NOTE | 2019-10-12 15:16 | Surgery Progress Note ---
Surgery Progress Note Subjective Symptoms: improved, tolerating diet, pain decreased Objective Last 24 Hour Vital Signs Date Time Temp Pulse Resp B/P (MAP) Pulse Ox O2 Delivery O2 Flow Rate FiO2 10/12/19 12:00 97.3 112 20 111/65 (80) 95 10/12/19 09:07 Room Air 10/12/19 04:00 98.3 103 18 112/63 (79) 95 10/12/19 00:00 97.8 100 18 118/72 (87) 98 10/11/19 21:00 Room Air 10/11/19 20:00 97.3 103 18 108/68 (81) 96 10/11/19 18:42 97.8 10/11/19 16:00 97.8 112 20 108/65 (79) 95 I&O Intake and Output 10/11/19 10/12/19 19:00 07:00 Intake Total 830.0 ml 137.5 ml Output Total 1400 ml 600 ml Balance -570.0 ml -462.5 ml Intake Oral 600 ml IV Total 110.0 ml 137.5 ml Tube Feeding 120 ml Output Urine Total 1400 ml 600 ml # Voids 1 Dressing: dry Wound: clean Cardiovascular: RSR Respiratory: clear Abdomen: soft, non-tender, present bowel sounds Extremities: no edema, no tenderness, no cyanosis Plan Problems: (1) Cellulitis Assessment & Plan: Patient reported to have cellulitis around his tracheostomy and therefore cannot be decannulated in facility. He was complaining of pain around the site. [place] [facility] [place] I was called to see patient patient was seen and evaluated no significant infectious or cellulitis process or on trachea for tracheostomy but there is granulation hyper granulation tissue noted. Discussed case with patient's primary care physician and patient he is ready for decannulation as was planned but unfortunate was unable to given it was felt that tracheostomy was stuck in place. After consent obtained from patient the tracheostomy was is decannulated at bedside without complication there was just some hyper granular tissue that was holding it in place but no abnormality or complication. Dressings applied. Okay for diet as tolerated Respiratory care deep suctioning Incentive spirometry Speech therapy Thank you for let me participate patient's care d/c planning (2) trach cellulitis (3) Tracheostomy complication Assessment & Plan: Oropharynx: No significant tonsillar enlargement. No peritonsillar abscess. Hypopharynx: Unremarkable. Larynx: Normal epiglottis. Trachea: Unremarkable. Retropharyngeal space: Unremarkable. Submandibular/parotid glands: Glands are normal in size. Thyroid: No nodules. Bones/joints: No acute fracture. Soft tissues: Tracheostomy tube is in place. Vasculature: Unremarkable. Lymph nodes: No lymphadenopathy. Mastoid air cells: Unremarkable. No mastoid effusion. Lung apices: Centrilobular nodules in the right lung base. There is also aspirate material in the lower trachea and right main bronchus. IMPRESSION: No acute findings in the neck. Centrilobular nodules in the right lung base consistent with aspiration. There is also aspirate material in the lower trachea and right main bronchus. hypergranulation tissue. no true complication. just healing process trach removed without issues dressings applied Raj Hernandez Oct 12, 2019 15:16
[2019-10-12 20:00] VITALS: BP 101/62
--- NOTE | 2019-10-12 23:45 | Progress Note ---
DATE: 10/11/2019 SUBJECTIVE: Patient yesterday underwent a swallowing eval and found that patient able to swallow orally; however, this was contradictory to the CT scan of the neck that revealed that patient while eating orally has food in his trachea and his left bronchi. Therefore, last night, patient was placed again on G-tube feeding and a second review of the swallowing eval was asked by the speech therapist. Second review was done and in spite of the CT scan findings, the speech therapist found that it was safe for the patient to have oral feeding. G-tube feeding immediately was discontinued and the patient is now on oral feeding. During this admission, the patient has his tracheostomy removed and his oral feeding resumed. He was supposed to be discharged today back to the subacute unit extended care facility; however, bed will be available only in the a.m. Patient will be discharged in the a.m. back to [facility] on his current medications. Kwame Flores M.D. DR: JEFF JOB#: [id number] CC:
[2019-10-13] VITALS: BP 127/68
[2019-10-13] MEDS: oxyCODONE 15mg IR tab ORAL PRN ×3 (00:06→14:51)
[2019-10-13 04:00] VITALS: BP 103/67
[2019-10-13] MEDS: Piperacillin/Tazobactam 3.375 GM in NS 110 ML IVPB SCH ×2 (06:10→15:08)
[2019-10-13] MEDS ORDERED: Ascorbic Acid 500mg tab ORAL SCH (09:00)
[2019-10-13] MEDS ORDERED: Dolutegravir Sodium 50mg tab ORAL SCH (09:00)
[2019-10-13] MEDS ORDERED: Zinc Sulfate 220mg ORAL SCH (09:00)
[2019-10-13] MEDS: Cyclobenzaprine 10mg Tab ORAL SCH ×3 (09:14→17:34)
[2019-10-13 09:30] VITALS: BP 101/67
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
[2019-10-13] MEDS ORDERED: AUGMENTIN 875-1 EAC1 ORAL (09:42)
--- NOTE | 2019-10-13 14:07 | Consultation ---
History of Present Illness General Date patient seen: Oct 13, 2019 Chief Complaint: Neck Pain Referring physician: Dr. aRmana Hernandez Reason for Consultation: trach wound Present Illness HPI This is a 33 year old man who underwent a tracheostomy 2 days ago. He was weaned off the vent and successfully decanulated and is doing well on the floor. I was consulted by Dr. Hernandez for evaulation of the healing tracheostomy wound. Allergies: Coded Allergies: IBUPROFEN (Verified Allergy, Unknown, 10/09/19) Medication History Scheduled Abacavir Sulfate* (Abacavir*), 300 MG ORAL DAILY, (Reported) Amoxicillin/Potassium Clav 875-125* (Augmentin 875-125 Tablet*), 1 TAB ORAL TWICE A DAY Ascorbic Acid* (Ascorbic Acid*), 500 MG GT DAILY, (Reported) Bisacodyl* (Dulcolax*), 5 MG GT DAILY, (Reported) Chlorhexidine Gluconate (Peridex), 15 ML ORAL BID, (Reported) Cyclobenzaprine Hcl (Cyclobenzaprine Hcl), 10 MG GT THREE TIMES A DAY, (Reported ) Dolutegravir Sodium (Tivicay), 50 MG GT DAILY, (Reported) FAMOTIDINE 20mg/2ml vial* (Pepcid 20mg/2ml vial*), 20 MG GT BID, (Reported) Metoclopramide HCl (Metoclopramide HCl), 10 MG GT Q8HR, (Reported) Oxycodone Hcl (Oxycodone Hcl), 15 MG GT Q4HR, (Reported) Tramadol Hcl (Tramadol Hcl), 50 MG GT Q4HR, (Reported) Zinc Sulfate (Zinc Sulfate), 220 MG GT DAILY, (Reported) [iamivudine], 300 MG GT DAILY, (Reported) [santyl], 250 UNIT TOPIC DAILY, (Reported) Scheduled PRN Acetaminophen 160MG/5ML* (Acetaminophen*), 20.3 ML GT Q6HR PRN for Fever/ Headache/Mild Pain, (Reported) Acetaminophen* (Acetaminophen 325MG Tablet*), 325 MG GT DAILY PRN for prior to wound care, (Reported) Polyethylene Glycol 3350* (Polyethylene Glycol 3350*), 15 ML GT DAILY PRN for Constipation, (Reported) Miscellaneous Medications Arginine/Ascorbate Sod/Brandon AC (Arginaid Powder), 1 EACH GT, (Reported) Enoxaparin (Lovenox), 40 MG SUBQ, (Reported) Gel Base No.41 (Hydrogel), 3,000 GM MC, (Reported) Multivitamin (Multi-Vitamin Daily), 1 EACH GT, (Reported) Povidone-Iodine (Betadine), 1 EACH TP, (Reported) Discontinued Medications Abacavir Sulfate* (Abacavir*), 300 MG GT TWICE A DAY, (Reported) Discontinued Reason: Medication dose changed Patient History Healthcare decision maker Resuscitation status Advanced Directive on File Physical Exam General Appearance: WD/WN, no apparent distress, alert oriented x3 HEENT: PERRL, EOMI, status post trach Physical Exam Narrative Pt has a healing tracheostomy wound. It measures 4mm X 4mm. There is a small amount of granulation tissue at the center of the healing wound. The surrounding tissues area healthy. no erythema, no warmth. no sign of infection Last 24 Hour Vital Signs Date Time Temp Pulse Resp B/P (MAP) Pulse Ox O2 Delivery O2 Flow Rate FiO2 10/13/19 09:30 97.3 111 20 101/67 (78) 97 10/13/19 09:00 Room Air 10/13/19 06:17 96.1 10/13/19 04:00 96.1 104 22 103/67 (79) 96 10/13/19 00:00 97.7 106 24 127/68 (87) 96 10/12/19 21:00 Room Air 10/12/19 20:00 97.5 106 20 101/62 (75) 96 Intake and Output 10/12/19 10/13/19 19:00 07:00 Intake Total 775.0 ml 110.0 ml Output Total 1000 ml 600 ml Balance -225.0 ml -490.0 ml Intake Oral 720 ml IV Total 55.0 ml 110.0 ml Output Urine Total 1000 ml 600 ml Height (Feet): 6 Height (Inches): 1.00 Weight (Pounds): 169 Medications Current Medications Medications (Trade) Dose Ordered Sig/Fritz Route PRN Reason Start Time Stop Time Status Last Admin Dose Admin Abacavir Sulfate (Ziagen) 600 mg DAILY ORAL 10/13/19 09:00 11/09/19 15:59 10/13/19 09:18 Acetaminophen (Tylenol) 650 mg Q4H PRN ORAL Mild Pain (Pain Scale 1-3) 10/10/19 04:45 11/09/19 04:44 10/13/19 05:47 Albuterol/ Ipratropium (Albuterol/ Ipratropium) 3 ml Q4H PRN HHN Shortness of Breath 10/10/19 12:10 10/15/19 12:09 Ascorbic Acid (Vitamin C) 500 mg DAILY ORAL 10/13/19 09:00 11/09/19 08:59 10/13/19 09:15 Barium Sulfate (Varibar Honey) 250 ml NOW PRN RAD 10/11/19 11:00 10/14/19 10:50 Barium Sulfate (Varibar [place]) 240 ml NOW PRN RAD 10/11/19 11:00 10/14/19 10:50 Barium Sulfate (Varibar Pudding) 230 ml NOW PRN RAD 10/11/19 11:00 10/14/19 10:50 Bisacodyl (Dulcolax) 10 mg DAILY PRN ORAL Constipation 10/10/19 09:00 01/08/20 08:59 Cyclobenzaprine HCl (Flexeril) 10 mg THREE TIMES A DAY ORAL 10/10/19 09:00 11/09/19 08:59 10/13/19 09:14 Dolutegravir Sodium (Tivicay) 50 mg DAILY ORAL 10/13/19 09:00 01/08/20 14:59 10/13/19 09:19 Famotidine (Pepcid) 20 mg BID ORAL 10/10/19 09:00 01/08/20 08:59 10/13/19 09:14 Heparin Sodium (Porcine) (Heparin 5000 units/ml) 5,000 units EVERY 12 HOURS SUBQ 10/10/19 09:00 11/24/19 08:59 10/12/19 21:08 Lamivudine (Epivir) 300 mg DAILY ORAL 10/13/19 09:00 11/09/19 14:59 10/13/19 09:18 Multivitamins (Multivitamins) 1 tab DAILY ORAL 10/13/19 09:00 11/09/19 08:59 10/13/19 09:15 Ondansetron HCl (Zofran) 4 mg EVERY 6 HOURS PRN IVP Nausea & Vomiting 10/10/19 00:45 11/09/19 00:44 Oxycodone HCl (Roxicodone) 15 mg Q4H PRN ORAL Severe Pain (Pain Scale 7-10) 10/10/19 00:45 10/17/19 00:44 10/13/19 04:16 Piperacillin Sod/ Tazobactam Sod 3.375 gm/Sodium Chloride 110 ml @ 27.5 mls/hr EVERY 8 HOURS IVPB 10/10/19 14:00 10/15/19 13:59 10/13/19 06:10 Polyethylene Glycol (Miralax) 17 gm DAILYPRN PRN ORAL Constipation 10/12/19 12:03 11/11/19 12:02 Zinc Sulfate (Zinc Sulfate) 220 mg DAILY ORAL 10/13/19 09:00 01/08/20 08:59 10/13/19 09:15 Assessment/Plan Status: doing well Assessment/Plan: Pt with healing tracheostomy wound. No need for revision of the wound at this time. If the granulation tissue persists, can apply silver nitrate stick to the granulation tissue to expediate healing. Keep wound clean with clean dry dressing. After it heals, can use silicone gel or strip to prevent hypertrophic or keloid scar. Eugenie Padilla MD Oct 13, 2019 14:07
--- NOTE | 2019-10-13 14:26 | Surgery Progress Note ---
Surgery Progress Note Subjective Symptoms: improved, tolerating diet, passing flatus Objective Last 24 Hour Vital Signs Date Time Temp Pulse Resp B/P (MAP) Pulse Ox O2 Delivery O2 Flow Rate FiO2 10/13/19 09:30 97.3 111 20 101/67 (78) 97 10/13/19 09:00 Room Air 10/13/19 06:17 96.1 10/13/19 04:00 96.1 104 22 103/67 (79) 96 10/13/19 00:00 97.7 106 24 127/68 (87) 96 10/12/19 21:00 Room Air 10/12/19 20:00 97.5 106 20 101/62 (75) 96 I&O Intake and Output 10/12/19 10/13/19 19:00 07:00 Intake Total 775.0 ml 110.0 ml Output Total 1000 ml 600 ml Balance -225.0 ml -490.0 ml Intake Oral 720 ml IV Total 55.0 ml 110.0 ml Output Urine Total 1000 ml 600 ml Dressing: dry Wound: clean Cardiovascular: RSR Respiratory: clear Abdomen: soft, non-tender, present bowel sounds Extremities: no edema, no tenderness, no cyanosis Plan Problems: (1) Cellulitis Assessment & Plan: Patient reported to have cellulitis around his tracheostomy and therefore cannot be decannulated in facility. He was complaining of pain around the site. He was admitted to [facility] further evaluation I was called to see patient patient was seen and evaluated no significant infectious or cellulitis process or on trachea for tracheostomy but there is granulation hyper granulation tissue noted. Discussed case with patient's primary care physician and patient he is ready for decannulation as was planned but unfortunate was unable to given it was felt that tracheostomy was stuck in place. After consent obtained from patient the tracheostomy was is decannulated at bedside without complication there was just some hyper granular tissue that was holding it in place but no abnormality or complication. Dressings applied. Okay for diet as tolerated Respiratory care deep suctioning Incentive spirometry Speech therapy Thank you for let me participate patient's care d/c planning (2) trach cellulitis (3) Tracheostomy complication Assessment & Plan: Oropharynx: No significant tonsillar enlargement. No peritonsillar abscess. Hypopharynx: Unremarkable. Larynx: Normal epiglottis. Trachea: Unremarkable. Retropharyngeal space: Unremarkable. Submandibular/parotid glands: Glands are normal in size. Thyroid: No nodules. Bones/joints: No acute fracture. Soft tissues: Tracheostomy tube is in place. Vasculature: Unremarkable. Lymph nodes: No lymphadenopathy. Mastoid air cells: Unremarkable. No mastoid effusion. Lung apices: Centrilobular nodules in the right lung base. There is also aspirate material in the lower trachea and right main bronchus. IMPRESSION: No acute findings in the neck. Centrilobular nodules in the right lung base consistent with aspiration. There is also aspirate material in the lower trachea and right main bronchus. hypergranulation tissue. no true complication. just healing process trach removed without issues dressings applied Raj Hernandez Oct 13, 2019 14:26
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
== END 2019-10-13 18:41 | DRG 143 ==
LOC: EDBD 18:19 → EMR 19:22 → 4E 21:00 → EDBEDREQ 21:35
PROC: 0BP1XFZ Removal of Tracheostomy Device from Trachea, External Approach (ICD-10-PCS; principal; 2019-10-09)
DX: J95.09 Other tracheostomy complication (principal); L03.818 Cellulitis of other sites; J18.9 Pneumonia, unspecified organism; G82.20 Paraplegia, unspecified; J44.9 Chronic obstructive pulmonary disease, unspecified; Y83.3 Surgical operation with formation of external stoma as the cause of abnormal reaction of the patient, or of later complication, without mention of misadventure at the time of the procedure; R13.10 Dysphagia, unspecified; Z43.1 Encounter for attention to gastrostomy; S24.109S Unspecified injury at unspecified level of thoracic spinal cord, sequela; N39.0 Urinary tract infection, site not specified; W34.00XS Accidental discharge from unspecified firearms or gun, sequela; Z88.6 Allergy status to analgesic agent; R91.1 Solitary pulmonary nodule
CPT/HCPCS: 36415; 70491; 71045; 74230; 80053; 81003; 85025; 87040; 87086; 87181; 92610; 96374; 96375; 99285; J2405